=== PATIENT | female | born 1955 | race Caucasian/White ===

== ENCOUNTER 2021-06-14 14:03 | Inpatient (IN) ==
[2021-06-14] MEDS ORDERED: GLUCAGON 1 MG VIAL IM PRN (15:50)
[2021-06-14] MEDS ORDERED: BISACODYL 5 MG TABLET PO PRN (15:50)
[2021-06-14] MEDS ORDERED: DEXTROSE 50% 25 GM/50 ML VIAL IV PRN (15:50)
[2021-06-14] MEDS ORDERED: ONDANSETRON 4 MG/2 ML VIAL IV PRN (15:50)
[2021-06-14] MEDS ORDERED: diphenhydrAMINE CAP 25 MG CAPSULE PO PRN (15:50)
[2021-06-14] MEDS ORDERED: GABAPENTIN 300 MG CAPSULE PO PRN (15:56)
[2021-06-14 16:15] LABS: Hematocrit 30.9 VOL% (35.7-47.0); Hemoglobin 9.9 GM/DL (12.0-16.0); Immature Granulocytes % 2.3 %; Immature Granulocytes Absolute 0.01 #; Lymphocytes # 0.2 10*3/uL (1.4-4.0); Lymphocytes % 45.5 % (21.3-54.2); Mean Corpuscular Volume 91.7 FL (87-102); Mean Platelet Volume 9.4 FL (9.6-12.0); Monocytes % 43.2 % (1.7-12.7); Platelet Count 219 T/CUMM (130-400); Red Blood Count 3.37 MC/CUMM (3.8-5.5); Red Cell Distribution Width 15.5 % (9.3-17.3)
[2021-06-14 16:17] LABS: White Blood Count 0.4 T/CUMM (4-12)
[2021-06-14] MEDS ORDERED: hydrOXYzine HCL 25 MG TABLET PO PRN (16:20)
[2021-06-14] MEDS ORDERED: diphenhydrAMINE 2% CREAM 28 GM TUBE TOP PRN (16:20)
[2021-06-14] MEDS ORDERED: NICOTINE 21 MG/24 HR PATCH TRANSDERM PRN (16:20)
[2021-06-14 16:40] LABS: Alanine Aminotransferase 20 U/L (13-56); Albumin 2.8 G/DL (3.4-5.0); Alkaline Phosphatase 80 U/L (45-117); Aspartate Amino Transferase 31 U/L (0-37); Bilirubin,Total < 0.39 MG/DL (0.20-1.00); Blood Urea Nitrogen 9 MG/DL (7-18); Calcium 7.7 MG/DL (8.5-10.1); Carbon Dioxide 23 MMOL/L (21-32); Estimated Glom Filtration Rate 74 ML/MIN; Glucose 105 MG/DL (74-106); Potassium 3.9 MMOL/L (3.5-5.1); Sodium 136 MMOL/L (136-145); Total Protein 6.6 G/DL (6.4-8.2)
[2021-06-14 16:44] LABS: Anisocytosis 1+; Atypical Lymphocytes 1+; Hypochromasia 1+; Lymphocytes 47 % (20-55); Platelet Estimate Adequate; Polychromasia Few; Segmented Neutrophils 7 % (50-85); Total Cells Counted 100
[2021-06-14] MEDS: CEFEPIME 1,000 MG in SODIUM CHLORIDE 0.9% 100 ML IV SCH (18:07)
[2021-06-14] MEDS: ENOXAPARIN 40 MG/0.4 ML SYRINGE SUBCUT SCH (18:18)
[2021-06-14] MEDS: SODIUM CHLORIDE 0.9% 1,000 ML IV SCH (18:21)
[2021-06-14] MEDS: NYSTATIN 500,000 UNIT/5 ML UDCUP SWISH/SWAL SCH ×2 (19:03→21:52)
[2021-06-14] MEDS: ACETAMINOPHEN 325 MG TABLET PO PRN (21:52)
[2021-06-14] MEDS: VANCOMYCIN INJ 1,000 MG in SODIUM CHLORIDE 0.9% 250 ML IV SCH (21:53)
[2021-06-15] MEDS: ACETAMINOPHEN 325 MG TABLET PO PRN ×3 (00:27→17:57)
[2021-06-15] MEDS: CEFEPIME 1,000 MG in SODIUM CHLORIDE 0.9% 100 ML IV SCH ×2 (00:27→05:30)
[2021-06-15 05:17] LABS: Basophils % 1.4 % (0.0-0.8); Hematocrit 28.8 VOL% (35.7-47.0); Hemoglobin 9.2 GM/DL (12.0-16.0); Immature Granulocytes % 5.6 %; Immature Granulocytes Absolute 0.04 #; Lymphocytes # 0.3 10*3/uL (1.4-4.0); Mean Corpuscular HGB Conc 31.9 GM/DL (32-36); Mean Corpuscular Volume 89.7 FL (87-102); Monocytes % 52.1 % (1.7-12.7); NRBC # 0.02 10*3/uL; Neutrophils % 2.9 % (38.7-73.9); Platelet Count 187 T/CUMM (130-400); Red Blood Count 3.21 MC/CUMM (3.8-5.5); Red Cell Distribution Width 15.3 % (9.3-17.3)
[2021-06-15 05:21] LABS: White Blood Count 0.7 T/CUMM (4-12)
[2021-06-15 05:35] LABS: Calcium 7.4 MG/DL (8.5-10.1); Osmolality,Calculated 270.8 MOS/KG (273-304); Potassium 3.1 MMOL/L (3.5-5.1)
[2021-06-15 05:40] LABS: Nucleated Red Blood Cells 1 (0-5)
[2021-06-15 05:41] LABS: Hypochromasia 1+; Microcytosis 1+; Ovalocytes Slight; Platelet Estimate Adequate
[2021-06-15 05:43] LABS: Eosinophils 2 % (0-10); Lymphocytes 50 % (20-55); Segmented Neutrophils 4 % (50-85); Total Cells Counted 102
[2021-06-15] MEDS: SODIUM CHLORIDE 0.9% 1,000 ML IV SCH ×3 (06:08→22:13)
[2021-06-15 06:33] LABS: Amorphous Crystals,Urine Occasional /HPF (Few); Bacteria,Urine Occasional /HPF (Few); Bilirubin,Urine Negative (Negative); Blood, Urine Moderate mg/dL (Negative); Glucose,Urine (UA) Negative (Negative); Ketones,Urine Negative (Negative); Nitrite,Urine Negative (Negative); Protein,Urine Negative; RBC,Urine 1 /HPF (0-4); Urine Appearance Slightly Hazy (Clear); Urine Color Yellow (Yellow); Urine Specific Gravity 1.005 (1.001-1.035); Urine Urobilinogen < 2.0 EU/DL (0.2-1.0)
[2021-06-15] MEDS ORDERED: POTASSIUM CHLORIDE 20 MEQ TABLET PO ONE (08:11)
[2021-06-15] MEDS ORDERED: FILGRASTIM-SNDZ 300 MCG/0.5 ML SYRINGE SUBCUT SCH (09:00)
[2021-06-15] MEDS: NYSTATIN 500,000 UNIT/5 ML UDCUP SWISH/SWAL SCH ×4 (09:36→21:20)
[2021-06-15] MEDS: ESCITALOPRAM 10 MG TABLET PO SCH (09:36)
[2021-06-15] MEDS: PANTOPRAZOLE 40 MG TABLET PO SCH (09:36)
[2021-06-15] MEDS: VANCOMYCIN INJ 1,000 MG in SODIUM CHLORIDE 0.9% 250 ML IV SCH ×2 (09:36→22:20)
[2021-06-15] MEDS: ACYCLOVIR IV SCH ×2 (13:57→20:16)
[2021-06-15] MEDS: SODIUM CHLORIDE 0.9% IV SCH ×2 (13:57→20:16)
[2021-06-15] MEDS: FLUCONAZOLE 100 MG TABLET PO SCH (14:10)
[2021-06-15] MEDS: CEFEPIME 2,000 MG in SODIUM CHLORIDE 0.9% 100 ML IV SCH ×2 (16:20→22:00)
[2021-06-15] MEDS: ENOXAPARIN 40 MG/0.4 ML SYRINGE SUBCUT SCH (16:23)
[2021-06-16] MEDS: SODIUM CHLORIDE 0.9% IV SCH ×2 (04:06→13:15)
[2021-06-16] MEDS: ACYCLOVIR IV SCH ×2 (04:06→13:15)
[2021-06-16 05:13] LABS: Hematocrit 26.5 VOL% (35.7-47.0); Hemoglobin 8.4 GM/DL (12.0-16.0); Immature Granulocytes % 3.9 %; Immature Granulocytes Absolute 0.08 #; Lymphocytes # 0.6 10*3/uL (1.4-4.0); Lymphocytes % 29.5 % (21.3-54.2); Mean Corpuscular HGB Conc 31.7 GM/DL (32-36); Mean Corpuscular Volume 89.8 FL (87-102); Mean Platelet Volume 10.1 FL (9.6-12.0); NRBC # 0.02 10*3/uL; Neutrophils % 36.6 % (38.7-73.9); Platelet Count 173 T/CUMM (130-400); Red Blood Count 2.95 MC/CUMM (3.8-5.5); Red Cell Distribution Width 15.6 % (9.3-17.3); White Blood Count 2.1 T/CUMM (4-12)
[2021-06-16] MEDS: CEFEPIME 2,000 MG in SODIUM CHLORIDE 0.9% 100 ML IV SCH ×3 (05:30→23:07)
[2021-06-16 05:57] LABS: Calcium 7.4 MG/DL (8.5-10.1); Osmolality,Calculated 271.7 MOS/KG (273-304); Potassium 3.4 MMOL/L (3.5-5.1)
[2021-06-16 07:01] LABS: Band Neutrophils 3 % (0-10); Eosinophils 2 % (0-10); Lymphocytes 37 % (20-55); Nucleated Red Blood Cells 4 (0-5); Segmented Neutrophils 35 % (50-85); Total Cells Counted 100
[2021-06-16 07:02] LABS: Hypochromasia 1+; Microcytosis 1+
[2021-06-16 07:03] LABS: Platelet Estimate Adequate
[2021-06-16] MEDS ORDERED: MAGNESIUM SULF RIDER 2 GM/50 ML PREMIX IV ONE (07:39)
[2021-06-16] MEDS ORDERED: POTASSIUM CHLORIDE 20 MEQ TABLET PO ONE (07:39)
[2021-06-16] MEDS: ACETAMINOPHEN 325 MG TABLET PO PRN (09:21)
[2021-06-16] MEDS: NYSTATIN 500,000 UNIT/5 ML UDCUP SWISH/SWAL SCH ×4 (09:21→21:27)
[2021-06-16] MEDS: FLUCONAZOLE 100 MG TABLET PO SCH (09:21)
[2021-06-16] MEDS: PANTOPRAZOLE 40 MG TABLET PO SCH (09:21)
[2021-06-16] MEDS: SODIUM CHLORIDE 0.9% 1,000 ML IV SCH ×2 (09:22→23:48)
[2021-06-16] MEDS: FILGRASTIM-SNDZ 480 MCG/0.8 ML SYRINGE SUBCUT SCH (09:22)
[2021-06-16] MEDS: VANCOMYCIN INJ 1,000 MG in SODIUM CHLORIDE 0.9% 250 ML IV SCH ×2 (09:23→21:24)
[2021-06-16] MEDS: BACITRACIN OINT 0.9 GM PACK TOP SCH ×2 (11:58→21:30)
[2021-06-16] MEDS: ENOXAPARIN 40 MG/0.4 ML SYRINGE SUBCUT SCH (15:17)
[2021-06-16] MEDS ORDERED: PANTOPRAZOLE 40 MG TABLET PO ONE (23:35)
[2021-06-17] MEDS: CEFEPIME 2,000 MG in SODIUM CHLORIDE 0.9% 100 ML IV SCH ×3 (06:02→21:05)
[2021-06-17] MEDS ORDERED: SEVOFLURANE 1 UNIT/15 MINUTE INH ONE ×3 (07:15→09:22)
[2021-06-17] MEDS ORDERED: LIDOCAINE 2% 5 ML VIAL ONE (07:15)
[2021-06-17] MEDS ORDERED: fentaNYL 100 MCG/2 ML VIAL ONE (07:15)
[2021-06-17] MEDS ORDERED: ONDANSETRON 4 MG/2 ML VIAL ONE (07:15)
[2021-06-17] MEDS ORDERED: MIDAZOLAM 2 MG/2 ML VIAL ONE (07:15)
[2021-06-17] MEDS ORDERED: propofoL 200 MG/20 ML VIAL IV ONE (07:15)
[2021-06-17 08:11] LABS: Basophils % 0.2 % (0.0-0.8); Eosinophils % 0.3 % (0.00-10.9); Hematocrit 25.8 VOL% (35.7-47.0); Hemoglobin 8.2 GM/DL (12.0-16.0); Immature Granulocytes % 12.4 %; Immature Granulocytes Absolute 1.83 #; Lymphocytes % 6.9 % (21.3-54.2); Mean Corpuscular HGB Conc 31.8 GM/DL (32-36); Mean Platelet Volume 9.9 FL (9.6-12.0); Monocytes % 3.8 % (1.7-12.7); NRBC # 0.03 10*3/uL; Neutrophils % 76.4 % (38.7-73.9); Platelet Count 180 T/CUMM (130-400); Red Cell Distribution Width 15.8 % (9.3-17.3)
[2021-06-17 08:17] LABS: White Blood Count 14.7 T/CUMM (4-12)
[2021-06-17 08:25] LABS: Calcium 7.4 MG/DL (8.5-10.1); Osmolality,Calculated 274.5 MOS/KG (273-304); Potassium 3.3 MMOL/L (3.5-5.1)
[2021-06-17 08:44] LABS: Anisocytosis 2+; Band Neutrophils 17 % (0-10); Lymphocytes 10 % (20-55); Metamyelocytes 3 %; Myelocytes 1 %; Platelet Estimate Normal; Segmented Neutrophils 64 % (50-85); Total Cells Counted 100
[2021-06-17] MEDS: PANTOPRAZOLE 40 MG TABLET PO SCH (10:06)
[2021-06-17] MEDS: NYSTATIN 500,000 UNIT/5 ML UDCUP SWISH/SWAL SCH ×4 (10:06→21:05)
[2021-06-17] MEDS: FLUCONAZOLE 100 MG TABLET PO SCH (10:06)
[2021-06-17] MEDS: BACITRACIN OINT 0.9 GM PACK TOP SCH ×3 (10:07→21:05)
[2021-06-17] MEDS: FILGRASTIM-SNDZ 480 MCG/0.8 ML SYRINGE SUBCUT SCH (10:25)
[2021-06-17] MEDS: VANCOMYCIN INJ 1,000 MG in SODIUM CHLORIDE 0.9% 250 ML IV SCH ×2 (10:25→22:36)
[2021-06-17] MEDS: SODIUM CHLOR 0.9% KCL 20 MEQ 20 MEQ/1,000 ML BAG IV SCH (14:50)
[2021-06-17] MEDS: SODIUM CHLORIDE 0.9% 1,000 ML IV SCH (14:51)
[2021-06-17 18:21] LABS: Hematocrit 24.4 VOL% (35.7-47.0); Hemoglobin 7.8 GM/DL (12.0-16.0)
[2021-06-18] MEDS: SODIUM CHLOR 0.9% KCL 20 MEQ 20 MEQ/1,000 ML BAG IV SCH ×2 (01:25→16:13)
[2021-06-18] MEDS: CEFEPIME 2,000 MG in SODIUM CHLORIDE 0.9% 100 ML IV SCH ×3 (05:19→21:06)
[2021-06-18 07:37] LABS: Basophils # 0.1 10*3/uL (0.0-0.2); Basophils % 0.2 % (0.0-0.8); Hematocrit 24.8 VOL% (35.7-47.0); Hemoglobin 7.9 GM/DL (12.0-16.0); Immature Granulocytes % 11.8 %; Immature Granulocytes Absolute 4.45 #; Lymphocytes # 1.5 10*3/uL (1.4-4.0); Lymphocytes % 4.1 % (21.3-54.2); Mean Corpuscular HGB Conc 31.9 GM/DL (32-36); Mean Corpuscular Volume 89.2 FL (87-102); Mean Platelet Volume 10.3 FL (9.6-12.0); Monocytes % 2.3 % (1.7-12.7); NRBC # 0.04 10*3/uL; Neutrophils % 81.6 % (38.7-73.9); Platelet Count 209 T/CUMM (130-400); Red Blood Count 2.78 MC/CUMM (3.8-5.5); Red Cell Distribution Width 16.1 % (9.3-17.3)
[2021-06-18 07:41] LABS: White Blood Count 37.7 T/CUMM (4-12)
[2021-06-18 07:53] LABS: Alanine Aminotransferase 16 U/L (13-56); Albumin 1.8 G/DL (3.4-5.0); Alkaline Phosphatase 124 U/L (45-117); Aspartate Amino Transferase 16 U/L (0-37); Bilirubin,Total < 0.39 MG/DL (0.20-1.00); Blood Urea Nitrogen 4 MG/DL (7-18); Calcium 7.3 MG/DL (8.5-10.1); Carbon Dioxide 19 MMOL/L (21-32); Estimated Glom Filtration Rate 87 ML/MIN; Glucose 89 MG/DL (74-106); Osmolality,Calculated 278.1 MOS/KG (273-304); Potassium 3.3 MMOL/L (3.5-5.1); Sodium 142 MMOL/L (136-145); Total Protein 5.4 G/DL (6.4-8.2)
[2021-06-18] MEDS ORDERED: POTASSIUM CHLORIDE 20 MEQ TABLET PO ONE (07:57)
[2021-06-18] MEDS ORDERED: MAGNESIUM SULF RIDER 2 GM/50 ML PREMIX IV ONE (07:57)
[2021-06-18 09:08] LABS: Band Neutrophils 16 % (0-10); Lymphocytes 8 % (20-55); Total Cells Counted 100
[2021-06-18 09:09] LABS: Anisocytosis 1+; Platelet Estimate Normal; Smudge Cells Few
[2021-06-18 09:10] LABS: Segmented Neutrophils 71 % (50-85); Toxic Granulation 1+
[2021-06-18] MEDS: BACITRACIN OINT 0.9 GM PACK TOP SCH ×2 (10:03→20:42)
[2021-06-18] MEDS: NYSTATIN 500,000 UNIT/5 ML UDCUP SWISH/SWAL SCH ×4 (10:03→20:42)
[2021-06-18] MEDS: PANTOPRAZOLE 40 MG TABLET PO SCH (10:04)
[2021-06-18] MEDS: ESCITALOPRAM 10 MG TABLET PO SCH (10:04)
[2021-06-18] MEDS: VANCOMYCIN INJ 1,000 MG in SODIUM CHLORIDE 0.9% 250 ML IV SCH ×2 (13:18→22:24)
[2021-06-18] MEDS: SODIUM HYPOCHLORITE 0.25% IRRIG 473 ML BOTTLE TOP SCH (17:20)
[2021-06-19] MEDS: SODIUM CHLOR 0.9% KCL 20 MEQ 20 MEQ/1,000 ML BAG IV SCH ×2 (02:47→19:04)
[2021-06-19] MEDS: CEFEPIME 2,000 MG in SODIUM CHLORIDE 0.9% 100 ML IV SCH (05:02)
[2021-06-19 06:07] LABS: Basophils # 0.1 10*3/uL (0.0-0.2); Basophils % 0.2 % (0.0-0.8); Hemoglobin 7.3 GM/DL (12.0-16.0); Immature Granulocytes % 10.2 %; Lymphocytes # 1.4 10*3/uL (1.4-4.0); Lymphocytes % 5.8 % (21.3-54.2); Mean Corpuscular HGB Conc 30.4 GM/DL (32-36); Mean Corpuscular Volume 92.3 FL (87-102); Mean Platelet Volume 10.2 FL (9.6-12.0); Monocytes % 2.6 % (1.7-12.7); NRBC # 0.03 10*3/uL; Neutrophils % 81.2 % (38.7-73.9); Platelet Count 214 T/CUMM (130-400); Red Cell Distribution Width 16.5 % (9.3-17.3); White Blood Count 24.5 T/CUMM (4-12)
[2021-06-19 06:31] LABS: Calcium 7.8 MG/DL (8.5-10.1); Potassium 3.8 MMOL/L (3.5-5.1)
[2021-06-19] MEDS ORDERED: SODIUM CHLORIDE 0.9% 1,000 ML IV PRN (08:31)
[2021-06-19] MEDS ORDERED: FUROSEMIDE 20 MG TABLET PO ONE (08:44)
[2021-06-19 08:47] LABS: Band Neutrophils 15 % (0-10); Lymphocytes 10 % (20-55); Metamyelocytes 1 %; Myelocytes 3 %; Nucleated Red Blood Cells 1 (0-5); Segmented Neutrophils 71 % (50-85); Total Cells Counted 100
[2021-06-19 08:48] LABS: Anisocytosis 1+; Atypical Lymphocytes Few; Platelet Estimate Normal
[2021-06-19 08:49] LABS: Smudge Cells Few
[2021-06-19] MEDS: NYSTATIN 500,000 UNIT/5 ML UDCUP SWISH/SWAL SCH ×4 (09:09→21:55)
[2021-06-19] MEDS: PANTOPRAZOLE 40 MG TABLET PO SCH (09:09)
[2021-06-19] MEDS: LOSARTAN 50 MG TABLET PO SCH (09:10)
[2021-06-19] MEDS: ESCITALOPRAM 10 MG TABLET PO SCH (09:10)
[2021-06-19] MEDS: BACITRACIN OINT 0.9 GM PACK TOP SCH ×2 (10:30→21:55)
[2021-06-19] MEDS: SODIUM HYPOCHLORITE 0.25% IRRIG 473 ML BOTTLE TOP SCH (10:55)
[2021-06-19] MEDS: VANCOMYCIN INJ 1,000 MG in SODIUM CHLORIDE 0.9% 250 ML IV SCH ×2 (18:04→21:55)
[2021-06-20 05:40] LABS: Basophils # 0.1 10*3/uL (0.0-0.2); Basophils % 0.5 % (0.0-0.8); Hemoglobin 10.2 GM/DL (12.0-16.0); Immature Granulocytes % 8.7 %; Immature Granulocytes Absolute 0.95 #; Lymphocytes # 1.2 10*3/uL (1.4-4.0); Lymphocytes % 10.9 % (21.3-54.2); Mean Corpuscular HGB Conc 32.9 GM/DL (32-36); Mean Corpuscular Volume 87.6 FL (87-102); Mean Platelet Volume 10.3 FL (9.6-12.0); NRBC # 0.02 10*3/uL; Neutrophils % 74.9 % (38.7-73.9); Platelet Count 264 T/CUMM (130-400); Red Blood Count 3.54 MC/CUMM (3.8-5.5); Red Cell Distribution Width 15.9 % (9.3-17.3)
[2021-06-20 06:12] LABS: Osmolality,Calculated 275.4 MOS/KG (273-304); Potassium 3.4 MMOL/L (3.5-5.1)
[2021-06-20 06:17] LABS: Band Neutrophils 1 % (0-10); Hypochromasia 1+; Lymphocytes 11 % (20-55); Microcytosis 1+; Platelet Estimate Adequate; Segmented Neutrophils 87 % (50-85); Total Cells Counted 100
[2021-06-20] MEDS: BACITRACIN OINT 0.9 GM PACK TOP SCH (09:09)
[2021-06-20] MEDS: LOSARTAN 50 MG TABLET PO SCH (09:10)
[2021-06-20] MEDS: PANTOPRAZOLE 40 MG TABLET PO SCH (09:10)
[2021-06-20] MEDS: ESCITALOPRAM 10 MG TABLET PO SCH (09:11)
[2021-06-20] MEDS: NYSTATIN 500,000 UNIT/5 ML UDCUP SWISH/SWAL SCH ×2 (09:12→13:16)
[2021-06-20] MEDS: SODIUM HYPOCHLORITE 0.25% IRRIG 473 ML BOTTLE TOP SCH (09:14)
[2021-06-20] MEDS: VANCOMYCIN INJ 1,000 MG in SODIUM CHLORIDE 0.9% 250 ML IV SCH (11:25)
[2021-06-20 12:14] VITALS: BP 166/63
[2021-06-20] MEDS ORDERED: POTASSIUM CHLORIDE 20 MEQ TABLET PO ONE (12:18)
== END 2021-06-20 14:30 | disposition home health service (06) | DRG 988 ==
LOC: PREINTOOBSV 14:24 → PREOBSVTOIN 14:24 → SUATTDRO 14:30 → N.4E 14:30
PROVIDERS: ADMIT Internal Medicine Hematology & Oncology; ATTEND Hospitalist